=== PATIENT | male | born 1950 | race Caucasian/White ===

== ENCOUNTER 2018-01-01 09:05 | Day surgery (SDC) | payer MEDICARE, SELFPAY ==
[2017-12-23 13:29] VITALS: BMI 25.2
[2018-01-01] VITALS (7 sets, daily range): BP systolic 148–177; BP diastolic 89–110; PULSE 76–97; RESP 11–19; TEMP 36.3–37; O2SAT 96–100; BMI 25.2
--- NOTE | 2018-01-01 | PATH_ITS ---
[facility] Accession Number: [id number] . 01 Material submitted: . PART A: POSTERIOR MIDLINE HEMORRHOID PART B: RIGHT POSTERIOR LATERAL HEMORRHOID . 02 Diagnosis: A. Posterior Midline Hemorrhoid, Biopsy: Hemorrhoidal anorectal tissue. No evidence of neoplasia. . B. Right Posterior Lateral Hemorrhoid, Biopsy: Squamous mucosa with abundant small congestive capillaries consistent with hemorrhoidal tissue. No evidence of neoplasm. MRV/01/05/2018 . 02 Electronically signed: . Richa Briones MD, Pathologist NPI- [id number] . 01 Gross description: . (A) Received in formalin, labeled posterior midline hemorrhoid, is a piece of lui-purple bulging skin (2.5 x 1.6 x 0.5 cm). The resection margin is inked black. Phd Intern serial sections submitted in cassette A1. (B) Received in formalin, labeled right posterior lateral, is a piece of lui-mckay rubbery skin (1.4 x 0.6 x 0.3 cm). The resection margin is inked black. Serially sectioned and entirely submitted in cassette B1. ([id number]) /MRV . 02 Pathologist provided ICD-10: K64.9 . 02 CPT . 135668, [id number] Performed at: 01 [facility] [address], [place], [place] [id number] MD Bienvenido English MD Phone: [phone] Performed at: 02 [facility] [address] [place], [place] [id number] MD Reginald Hodges MD Phone: [phone]
--- NOTE | 2018-01-01 07:58 | PM.PREOP ---
Pre-operative Note Interval Note Pre-op Check: Yes History & Physical Reviewed by Physician and Yes Exam Performed Changes: No
--- NOTE | 2018-01-01 07:59 | PM.PREOP ---
Pre-operative Note Interval Note Changes: Yes H&P completed within 30 days and has changed as indicated here:: has severe anxiety
--- NOTE | 2018-01-01 10:39 | PM.PREOP ---
Pre-operative Note Interval Note Pre-op Check: Yes History & Physical Reviewed by Physician and Yes Exam Performed Changes: No
--- NOTE | 2018-01-01 11:44 | SUR.OPER ---
Supine on padded OR bed, head on pillow, arms secured on padded arm boards at <90 degrees abduction, legs uncrossed, safety belt at thigh, tape over blanket over lower legs.
--- NOTE | 2018-01-01 11:44 | SUR.OPER ---
Lithotomy on padded OR bed, head on pillow, arms secured on padded arm boards at <90 degrees abduction. Legs secured in padded yellow fins stirrups.
[2018-01-01] MEDS: LIDOCAINE 5% OINT 35 GM 1 APPLIC TOP (11:52)
[2018-01-01] MEDS: CEFAZOLIN 2 GM/100 ML FROZ.PIGGY IV (12:06)
[2018-01-01] MEDS: LACTATED RINGERS 1,000 ML 42 ML IV (12:07)
[2018-01-01] MEDS: BUPIVACAINE 0.5% (PF) VIAL 30 ML INJ (13:30)
--- NOTE | 2018-01-01 13:39 | PM.OP.1 ---
Operative Date/Time/Diagnoses Date of procedure: 01/01/18 Time of procedure: 13:39 Pre-op diagnosis: Internal and external hemorrhoids with symptoms. Bilateral recurrent inguinal hernias. Post-op diagnosis: same (Both hernias were recurrent indirect hernias) Procedure & Clinicians Procedure: Bilateral inguinal hernia repairs with plug and patch technique. Three column hemorrhoidectomy. Same procedure as scheduled: Yes Indications: Symptomatic hemorrhoids and hernias. Patient insisted that the operations be done all at 1 visit. Surgeon: Mark Rosen Click Yes if Unassisted: Yes Anesthesia Type: General Operative Notes Findings: Very large posterior midline hemorrhoidal column. Two other smaller columns removed. 1 of these was right posterior lateral and 1 left lateral. Both hernias have recurrence adjacent to implanted mesh. Closure Type: primary Specimen(s): other (Hemorrhoidal colon sent) Implants & Drains: None Estimated Blood Loss (mL): 175 Blood products transfused: none Procedure in detail: The patient was placed in lithotomy and prepped draped the usual fashion. Digital exam revealed a very lax sphincter tone. Circumferential evaluation with a bivalve anoscope revealed a very large anterior column. Other columns were smaller. A suture was placed at the head of the very large posterior column and incision made in the anoderm. The hemorrhoidal column was carefully dissected off the underlying sphincter and muscle wall. I excised the hemorrhoid column and the defect created was closed with a running locking 2 0 chromic suture. The head of the column was oversewn again due to some bleeding in the area. This brought it under control. Digital exam revealed no narrowing of the colonic lumen. I turned my attention to the right posterior lateral hemorrhoid. This was much smaller. It was excised and the defect closed with a running 2 0 chromic. An additional column in the left posterior lateral was oversewn with a 2 0 chromic. Additionally in the posterior right lateral wall there was a continuation of this very large posterior midline hemorrhoidal column. I excised a portion of it and over sewed it. Hemostasis was achieved and Gel-Foam with lidocaine was inserted into the anal verge. The drapes were taken down the patient was taken out lithotomy. He was re-prepped and draped for bilateral inguinal hernia repairs. Beginning on the right side local anesthetic was infiltrated around his prior scar. An incision was made through the old scar and carried down to the level of the external oblique. The external oblique was clearly scarred in but I was able to identify the cord structures in with them from surrounding structures. I opened the cord proximally and there was a rather large lipoma of the cord coming through what appeared to be adjacent to a piece of mesh. I opened the floor dissected the fat off of it and of the underside and reduced it. I then placed a large plug in the defect and tacked it into place with interrupted Ethibond sutures. I closed the floor over it and then placed a patch across the floor. The patch was tacked at the pubic tubercle posterior lamella the anterior rectus sheath the ileo inguinal ligament and the external oblique. The subcu was closed with interrupted 3 0 Vicryl in 2 layers and the skin was closed a running 4 Vicryl subcuticular stitch and Steri-Strips. Attention was turned to the opposite side where a mirror operation was performed. In this case there appeared to be a defect not only adjacent to the external ring which had been recreated with mesh but also a small defect medial not far from the pubic tubercle. This was at the edge of a piece of mesh. A small plug was placed in the defect adjacent to the cord structures at the external ring and this was tacked into place with interrupted 0 Tycron sutures. Patch was then placed across the floor and tacked with interrupted and figure of 8 0 Tycron sutures. Closure was the same as the opposite side. Local anesthetic was infiltrated and Mastisol and Steri-Strips applied. Dressings were applied. Patient patient was taken recovery room good condition. Complications: none Condition: stable Disposition: PACU Plan for aftercare: Follow-up in the office
--- NOTE | 2018-01-01 14:03 | SUR.PHASEI ---
Dr. Alvarez aware pt's bp elevated, diastolic around 106, BP similar to admit, ok for pt to d/c per .
--- NOTE | 2018-01-01 16:25 | SUR.PHASEII ---
Pt forgetful, instructions repeated. Friend, Bhaskar, present. Pt to bathroom, reported he was able to void.
== END 2018-01-01 14:30 | disposition home or self-care (01) ==
PROVIDERS: PCP Family Medicine; Visit Provider Specialist
PROC: (CPT 49520; principal; 2018-01-01 10:45)
PROC: (CPT 49520; 2018-01-01 10:45)
DX: K40.21 Bilateral inguinal hernia, without obstruction or gangrene, recurrent (principal); K64.4 Residual hemorrhoidal skin tags; K64.8 Other hemorrhoids; F17.210 Nicotine dependence, cigarettes, uncomplicated
CPT/HCPCS: 49520; 46260; 88304; C1781; J0690; J1100; J1885; J2405; J2704; J3010

== ENCOUNTER → 2020-09-05 11:41 | Outpatient (CLI) | payer MEDICARE, SELFPAY ==
[2020-09-05 19:25] LABS: Add Manual Diff / Slide Review NO; Basophils Absolute Auto 0 /uL (0-100); Basophils Percent Auto 0.5 % (0-2); Eosinophils Absolute Auto 100 /uL (0-450); Eosinophils Percent Auto 0.8 % (2-4); Hematocrit 43.9 % (41-53); Hemoglobin 14.4 g/dL (13.5-17.5); Lymphocytes Absolute Auto 2800 /uL (1100-4500); Lymphocytes Percent Auto 30.6 % (25-40); Mean Corpuscular HGB Conc 32.9 % (30-36); Mean Corpuscular Volume 94.2 fL (80-100); Monocytes Absolute Auto 500 /uL (0-900); Monocytes Percent Auto 5.4 % (3-14); Neutrophils Absolute Auto 5700 /uL (1500-7000); Neutrophils Percent Auto 62.7 % (50-75); Platelet Count 249 X10^3/uL (150-400); Red Blood Cell Count 4.66 X10^6/uL (4.5-5.9); Red Cell Distribution Width 13.2 % (11.6-14.8); White Blood Cell Count 9.1 X10^3/uL (4.5-11.0)
[2020-09-05 19:28] LABS: Alanine Aminotransferase 28 IU/L (<50); Albumin 4.7 g/dL (3.5-5.0); Albumin Globulin Ratio 1.4 (1.0-2.8); Alkaline Phosphatase 69 U/L (38-126); Aspartate Aminotransferase 37 IU/L (17-59); BUN Creatinine Ratio 25.2 (6-22); Bilirubin Total 0.6 mg/dL (0.2-1.3); Blood Urea Nitrogen 31 mg/dL (9-20); Calcium 10.3 mg/dL (8.4-10.2); Carbon Dioxide 27 mmol/L (22-32); Chloride 103 mmol/L (98-107); Cholesterol 218 mg/dL (140-199); Estimated Glomerular Filt Rate 58.3 mL/min (>60); Globulin 3.3 g/dL (1.7-4.1); Glucose 105 mg/dL (80-110); HDL Cholesterol 36 mg/dL (40-60); HEMOLYSIS < 15 (0-50); LDL Cholesterol Calculated 159 mg/dL (<100); Sodium 140 mmol/L (137-145); Triglycerides 116 mg/dL (35-150)
[2020-09-05 19:34] LABS: Potassium 5.4 mmol/L (3.4-5.1)
[2020-09-05 19:48] LABS: Hemoglobin A1C% w Est Avg Glu 5.9 % (4.0-6.0)
== END ==
PROVIDERS: PCP Family Medicine; Visit Provider Physician Assistant
DX: R73.9 Hyperglycemia, unspecified (principal); K92.1 Melena; E78.5 Hyperlipidemia, unspecified
CPT/HCPCS: 80053; 80061; 83036; 85025

== ENCOUNTER → 2020-12-13 11:12 | Outpatient (CLI) | payer MEDICARE, SELFPAY ==
[2020-12-13 20:42] LABS: COVID19 - ORCAS (NP or Nasal) Negative (Negative)
== END ==
PROVIDERS: PCP Physician Assistant; Referring Provider Physician Assistant; Visit Provider Physician Assistant
DX: Z01.812 Encounter for preprocedural laboratory examination (principal)
CPT/HCPCS: U0003

== ENCOUNTER 2020-12-14 10:54 | Day surgery (SDC) | payer MEDICARE, SELFPAY ==
[2020-12-08 12:06] VITALS: BMI 25.2
[2020-12-14] VITALS (10 sets, daily range): BP systolic 107–139; BP diastolic 70–90; PULSE 7–82; RESP 11–16; TEMP 36.5–36.8; O2SAT 98–100; BMI 25.2
--- NOTE | 2020-12-14 | PATH_ITS ---
[facility] Accession Number: [id number] . 01 Material submitted: . finger - RIGHT MIDDLE FINGER BONY MASS . 01 Diagnosis: Right Middle Finger, Excision: Benign osteocartilaginous proliferation, consistent with exostosis. . Note: Clinical and radiographic correlation is recommended. [facility] 12/19/2020 1640 Local . 01 Comment: This case has been reviewed by Dr. Vy Young. . 01 Electronically signed: . Frandy Sosa MD, Dermatopathologist NPI- [id number] . 01 Gross description: . The specimen is received in formalin, labeled right middle finger bony mass and consists of a 0.6 x 0.4 x 0.2 cm mckay-white fragment of bone which is entirely submitted following decalcification in cassette A1. ([id number]) /MRV 12/15/2020 1047 Local . 01 Pathologist provided ICD-10: M89.8X4 . 01 CPT . 206288, 817431 Performed at: 01 [facility] [address] [place] [address], [place], [place] [id number] MD Bienvenido English MD Phone: [phone]
[2020-12-14] MEDS: LACTATED RINGERS 1,000 ML 100 ML IV (11:46)
--- NOTE | 2020-12-14 13:25 | PM.PREOP ---
Pre-operative Note Interval Note History & Physical reviewed/Exam performed by Physician: Yes Changes to H&P: No
--- NOTE | 2020-12-14 13:26 | PM.HP.1 ---
History of Present Illness History of Present Illness Date Patient Seen: 12/14/20 Time Patient Seen: 13:20 Chief complaint: SDC *$350 copay* Narrative: 70-year-old gentleman with a right middle finger bony mass causing him pain and limiting his range of motion. Patient History Medical History Bilateral inguinal hernia, without obstruction or gangrene, recurrent Current use of anticoagulant therapy Hemorrhoids with complication History of intestinal obstruction History of left heart catheterization (10/24/20) Hypertension Impaired vision Myocardial infarction (10/24/20) Surgical History Anesthesia History of bilateral inguinal hernia repair (~12/31/17) History of hemorrhoidectomy (~12/31/17) Hx of heart artery stent (~10/2020) Family & Social History Social History: household members none Tobacco & Substance use: Tobacco type cigarettes Smoking Status Former smoker alcohol intake never Substance Use Type marijuana Meds Home Medications and Allergies Home Medications Medication Instructions Recorded Confirmed Type PSYLLIUM HUSK (WITH SUGAR) 368 gm PO DAILY #0 03/05/16 12/08/20 History (METAMUCIL POWDER) lisinopril 40 mg tablet 20 mg PO DAILY 09/05/20 12/14/20 History aspirin 81 mg tablet,delayed 81 mg PO DAILY 11/06/20 12/14/20 History release (Adult Aspirin Regimen) metoprolol tartrate 25 mg tablet 12.5 mg PO BID 11/06/20 12/14/20 History ticagrelor 90 mg tablet 90 mg PO BID 11/06/20 12/08/20 History atorvastatin 10 mg tablet 40 mg PO BEDTIME 12/08/20 12/14/20 History ticagrelor 90 mg tablet (Brilinta) 90 mg BID 12/14/20 12/14/20 History Allergies Allergy/AdvReac Type Severity Reaction Status Date / Time No Known Drug Allergies Allergy Verified 12/14/20 11:42 Exam Vital Signs (past 8 hours): - 12/14/20 11:53 Temperature 97.7 F Pulse Rate 65 Respiratory Rate 14 Blood Pressure 139/90 Pulse Oximetry 100 Oxygen Delivery Method Room Air Narrative Exam Narrative: Bony mass over the distal aspect of the proximal phalanx just distal to the PIP joint. Patient can fully extend the finger but has difficulty with full flexion. Assessment & Plan Assessment & Plan narrative: Gentleman with a bony mass involving the right middle finger causing him pain and discomfort. Patient is interested in having the mass removed. Time Spent With Patient Time with patient: less than 15 minutes
[2020-12-14] MEDS: CEFAZOLIN 1 GM VIAL 2 GM IV (14:02)
--- NOTE | 2020-12-14 14:05 | SUR.OPER ---
Supine on padded OR bed, head on pillow, left arm is secured on padded arm boards at <90 degrees abduction, right arm draped free on padded black armtable, legs uncrossed, safety belt at thigh, tape over blanket over lower legs.
[2020-12-14] MEDS: BUPIVACAINE 0.5% (PF) VIAL 30 ML INJ (14:12)
[2020-12-14] MEDS: LIDOCAINE 1% W/EPI 20 ML INJ (14:13)
--- NOTE | 2020-12-14 14:33 | PM.OP.1 ---
Operative Date/Time/Diagnoses Date of procedure: 12/14/20 Time of procedure: 14:00 Pre-op diagnosis: Right middle finger bony mass Post-op diagnosis: same Procedure & Clinicians Procedure: Right middle finger bony mass excision Same procedure as scheduled: Yes Indications: Right middle finger bony mass Surgeon: Maximiliano Draper Click Yes if Unassisted: Yes Anesthesia Type: General Operative Notes Findings: Bony mass coming off the lateral border of the proximal phalanx. Not involving the joint space. Closure Type: primary Specimen(s): other (Bony mass sent to pathology) Estimated Blood Loss (mL): 0 Blood products transfused: none Tourniquet time (min): 22 Procedure in detail: On date of service, patient was met in the holding area and his operative site was signed and witnessed by the OR staff. The surgery was once again discussed with the patient in any remaining questions or concerns he had were answered fully. Patient was taken back to the operating theater and placed on the operating table in a supine position. Great care was taken to ensure that all bony prominences were appropriately padded. Well-padded tourniquet was placed up along the upper extremity. Time-out was performed verifying patient's name procedure, and operative site. Right arm was prepped and prepped in the normal sterile fashion. The arm was in seeing 1 aided in the tourniquet was turned up to 250 mmHg. A Itzel type incision was made centered over the PIP joint of the right middle finger. Fifteen blade was used to incise through skin and fascial tissue. Blunt dissection was continued identifying the neurovascular bundles to the middle finger. Once both bundles were identified and retracted continue dissection was performed until we were able to visualize the ulnar border of the proximal phalanx. The A3 bhupinder was just partially released on that ulnar aspect the venous ability to retract the flexor tendons given his good visualization of the bony mass. Osteotome was used to remove the bony mass. This was then sent to pathology. The rest of the proximal phalanx and surrounding structures were visualized. No sign of any other masses. The wound was copiously irrigated. Small opening made into the A3 bhupinder was closed using 3-0 Vicryl. The skin was closed with nylon. The hand was cleaned, dried, and dressed and patient was taken to the PACU in stable condition. Complications: none Post-operative Condition: stable Disposition: PACU Plan for aftercare: Patient can be discharged home today. No restrictions of range of motion. No lifting more than 2-3 lb for 2 weeks.
--- NOTE | 2020-12-14 15:00 | SUR.PHASEI ---
3056 Dr Covarrubias here to see patient and update patient regarding surgery.
--- NOTE | 2020-12-14 15:29 | SUR.PHASEII ---
Pt in OPD, drinking coffee and taking crackers and cheese. Alert, oriented, denies pain. Prescription taken to [facility] by this RN. Pt to be home after pharmacy closes on [address] this evening. Call light in reach. Bed in low position.
--- NOTE | 2020-12-14 16:22 | SUR.PHASEII ---
Meds from Pharmacy picked up and given to pt, pt dressed and waited for taxi.
--- NOTE | 2020-12-14 16:23 | SUR.PHASEII ---
R hand has been elevated and ice to site. Dressing remained c/d/i.
--- NOTE | 2020-12-14 16:42 | SUR.PHASEII ---
F/U appt changed due to pt wanting to stay in [place]. Pt left unit for taxi and left in stable condition.
== END 2020-12-14 16:42 | disposition home or self-care (01) ==
PROVIDERS: PCP Physician Assistant; Referring Provider Orthopaedic Surgery; Visit Provider Orthopaedic Surgery
PROC: (CPT 26160; principal; 2020-12-14 13:15)
DX: M89.8X4 Other specified disorders of bone, hand (principal); I10 Essential (primary) hypertension; I25.10 Atherosclerotic heart disease of native coronary artery without angina pectoris
CPT/HCPCS: 26210; J0690; J1100; J2250; J2405; J2704; J3010

== ENCOUNTER → 2021-07-02 13:57 | Outpatient (CLI) | payer MEDICARE, SELFPAY ==
[2021-07-02 19:26] LABS: Alanine Aminotransferase 29 IU/L (<50); Albumin 4.8 g/dL (3.5-5.0); Albumin Globulin Ratio 1.4 (1.0-2.8); Alkaline Phosphatase 71 U/L (38-126); Aspartate Aminotransferase 31 IU/L (17-59); BUN Creatinine Ratio 22.3 (6-22); Bilirubin Total 0.6 mg/dL (0.2-1.3); Blood Urea Nitrogen 27 mg/dL (9-20); Calcium 10.1 mg/dL (8.4-10.2); Carbon Dioxide 30 mmol/L (22-32); Chloride 103 mmol/L (98-107); Cholesterol 144 mg/dL (140-199); Estimated Glomerular Filt Rate 59.3 mL/min (>60); Globulin 3.4 g/dL (1.7-4.1); Glucose 109 mg/dL (80-110); HDL Cholesterol 28 mg/dL (40-60); HEMOLYSIS < 15 (0-50); LDL Cholesterol Calculated 89 mg/dL (<100); Sodium 141 mmol/L (137-145); Total Protein 8.2 g/dL (6.3-8.2); Triglycerides 137 mg/dL (35-150)
[2021-07-02 19:30] LABS: Add Manual Diff / Slide Review NO; Basophils Absolute Auto 0 /uL (0-100); Basophils Percent Auto 0.2 % (0-2); Eosinophils Absolute Auto 100 /uL (0-450); Eosinophils Percent Auto 1.2 % (2-4); Hemoglobin 13.7 g/dL (13.5-17.5); Lymphocytes Absolute Auto 2100 /uL (1100-4500); Lymphocytes Percent Auto 32.5 % (25-40); Mean Corpuscular HGB Conc 33.4 % (30-36); Mean Corpuscular Hemoglobin 30.1 PG (26-34); Monocytes Absolute Auto 500 /uL (0-900); Monocytes Percent Auto 7.7 % (3-14); Neutrophils Absolute Auto 3700 /uL (1500-7000); Neutrophils Percent Auto 58.4 % (50-75); Platelet Count 263 X10^3/uL (150-400); Red Blood Cell Count 4.56 X10^6/uL (4.5-5.9); Red Cell Distribution Width 13.3 % (11.6-14.8); White Blood Cell Count 6.4 X10^3/uL (4.5-11.0)
[2021-07-02 19:57] LABS: Prostate Specific Antigen 3.58 ng/mL (0.10-4.00)
== END ==
PROVIDERS: PCP Physician Assistant; Visit Provider Family Medicine
DX: R35.1 Nocturia (principal); Z12.5 Encounter for screening for malignant neoplasm of prostate; E78.5 Hyperlipidemia, unspecified; I10 Essential (primary) hypertension; R73.9 Hyperglycemia, unspecified
CPT/HCPCS: 80053; 80061; 84153; 85025

== ENCOUNTER → 2021-07-17 08:52 | Outpatient (CLI) | payer MEDICARE, SELFPAY ==
[2021-07-17 19:07] LABS: Add Manual Diff / Slide Review NO; Basophils Absolute Auto 100 /uL (0-100); Basophils Percent Auto 0.7 % (0-2); Eosinophils Absolute Auto 100 /uL (0-450); Eosinophils Percent Auto 1.5 % (2-4); Hematocrit 40.1 % (41-53); Hemoglobin 13.2 g/dL (13.5-17.5); Lymphocytes Absolute Auto 2900 /uL (1100-4500); Lymphocytes Percent Auto 33.6 % (25-40); Mean Corpuscular HGB Conc 32.9 % (30-36); Mean Corpuscular Hemoglobin 29.7 PG (26-34); Mean Corpuscular Volume 90.3 fL (80-100); Monocytes Absolute Auto 600 /uL (0-900); Monocytes Percent Auto 6.7 % (3-14); Neutrophils Absolute Auto 4900 /uL (1500-7000); Neutrophils Percent Auto 57.5 % (50-75); Platelet Count 266 X10^3/uL (150-400); Red Blood Cell Count 4.44 X10^6/uL (4.5-5.9); Red Cell Distribution Width 13.8 % (11.6-14.8); White Blood Cell Count 8.5 X10^3/uL (4.5-11.0)
[2021-07-17 19:15] LABS: Alanine Aminotransferase 31 IU/L (<50); Albumin 4.6 g/dL (3.5-5.0); Albumin Globulin Ratio 1.5 (1.0-2.8); Alkaline Phosphatase 67 U/L (38-126); Aspartate Aminotransferase 32 IU/L (17-59); BUN Creatinine Ratio 19.1 (6-22); Bilirubin Total 0.6 mg/dL (0.2-1.3); Blood Urea Nitrogen 22 mg/dL (9-20); Calcium 9.7 mg/dL (8.4-10.2); Carbon Dioxide 29 mmol/L (22-32); Chloride 104 mmol/L (98-107); Cholesterol 146 mg/dL (140-199); Estimated Glomerular Filt Rate > 60.0 mL/min (>60); Globulin 3.1 g/dL (1.7-4.1); Glucose 124 mg/dL (80-110); HDL Cholesterol 27 mg/dL (40-60); HEMOLYSIS 17 (0-50); LDL Cholesterol Calculated 89 mg/dL (<100); Potassium 4.6 mmol/L (3.4-5.1); Sodium 140 mmol/L (137-145); Total Protein 7.7 g/dL (6.3-8.2); Triglycerides 151 mg/dL (35-150)
[2021-07-17 19:20] LABS: Hemoglobin A1C% w Est Avg Glu 6.3 % (4.0-6.0)
[2021-07-17 19:46] LABS: Prostate Specific Antigen 2.59 ng/mL (0.10-4.00)
== END ==
PROVIDERS: PCP Physician Assistant; Visit Provider Family Medicine
DX: I10 Essential (primary) hypertension (principal); R73.9 Hyperglycemia, unspecified; E78.5 Hyperlipidemia, unspecified; Z12.5 Encounter for screening for malignant neoplasm of prostate; N40.0 Benign prostatic hyperplasia without lower urinary tract symptoms
CPT/HCPCS: 80053; 80061; 83036; 84153; 85025

== ENCOUNTER → 2021-11-08 10:45 | Outpatient (CLI) | payer MEDICARE, SELFPAY ==
[2021-11-08 18:57] LABS: Cholesterol 133 mg/dL (140-199); Glucose 122 mg/dL (80-110); HDL Cholesterol 27 mg/dL (40-60); LDL Cholesterol Calculated 78 mg/dL (<100); Triglycerides 139 mg/dL (35-150)
[2021-11-08 19:28] LABS: Prostate Specific Antigen Scrn 3.13 ng/mL (0.1-4.0)
[2021-11-08 19:58] LABS: Hep C Virus Ab w/Reflex Quant NEGATIVE s/c (NEGATIVE)
== END ==
PROVIDERS: PCP Physician Assistant; Visit Provider Family Medicine
DX: Z00.00 Encounter for general adult medical examination without abnormal findings (principal); Z11.59 Encounter for screening for other viral diseases; Z12.11 Encounter for screening for malignant neoplasm of colon; Z12.5 Encounter for screening for malignant neoplasm of prostate; Z13.1 Encounter for screening for diabetes mellitus; Z13.220 Encounter for screening for lipoid disorders; Z71.85 Encounter for immunization safety counseling
CPT/HCPCS: 80061; 82947; 86803; G0103

== ENCOUNTER → 2022-02-11 09:19 | Outpatient (CLI) | payer MEDICARE, SELFPAY ==
[2022-02-13 13:56] LABS: Fecal Immunochemical Test Negative (Negative)
== END ==
PROVIDERS: PCP Family Medicine; Visit Provider Family Medicine
DX: Z12.11 Encounter for screening for malignant neoplasm of colon (principal); Z13.9 Encounter for screening, unspecified
CPT/HCPCS: 82274

== ENCOUNTER → 2022-03-13 11:00 | Outpatient (CLI) | payer MEDICARE, SELFPAY ==
[2022-03-13 19:51] LABS: HEMOLYSIS < 15 (0-50); Iron 105 ug/dL (49-181)
[2022-03-13 20:02] LABS: BUN Creatinine Ratio 20.5 (6-22); Blood Urea Nitrogen 23 mg/dL (9-20); Calcium 9.1 mg/dL (8.4-10.2); Carbon Dioxide 28 mmol/L (22-32); Chloride 102 mmol/L (98-107); Estimated Glomerular Filt Rate > 60 mL/min (>60); Glucose 113 mg/dL (80-110); HEMOLYSIS < 15 (0-50); Percent Iron Saturation 26 % (20-50); Potassium 4.9 mmol/L (3.4-5.1); Sodium 140 mmol/L (137-145); Total Iron Binding Capacity 410 ug/dL (261-462); Transferrin 304 mg/dL (206-381)
[2022-03-13 20:03] LABS: Hemoglobin A1C% w Est Avg Glu 6.1 % (4.0-6.0)
[2022-03-13 20:16] LABS: Creatinine Urine Random 50.3 mg/dL
[2022-03-13 20:33] LABS: Microalbumin Urine Random < 0.6 mg/dL (0-1.6)
== END ==
PROVIDERS: PCP Family Medicine; Visit Provider Family Medicine
DX: E11.9 Type 2 diabetes mellitus without complications (principal); E78.5 Hyperlipidemia, unspecified; I10 Essential (primary) hypertension; I25.10 Atherosclerotic heart disease of native coronary artery without angina pectoris
CPT/HCPCS: 80048; 82043; 82570; 83036; 83540; 83550

== ENCOUNTER 2022-04-24 13:55 | Emergency (ER) | payer MEDICARE, SELFPAY ==
[2022-04-24 14:16] VITALS: BP 130/81; PULSE 91; RESP 18; TEMP 36.7; O2SAT 99; BMI 28.2
[2022-04-24 16:26] LABS: Add Manual Diff / Slide Review NO; Basophils Absolute Auto 0 /uL (0-100); Basophils Percent Auto 0.4 % (0-2); Eosinophils Absolute Auto 100 /uL (0-450); Hematocrit 43.4 % (41-53); Lymphocytes Absolute Auto 2500 /uL (1100-4500); Lymphocytes Percent Auto 33.5 % (25-40); Mean Corpuscular HGB Conc 32.3 % (30-36); Mean Corpuscular Hemoglobin 28.7 PG (26-34); Monocytes Absolute Auto 700 /uL (0-900); Neutrophils Absolute Auto 4100 /uL (1500-7000); Neutrophils Percent Auto 56.1 % (50-75); Platelet Count 240 X10^3/uL (150-400); Red Blood Cell Count 4.88 X10^6/uL (4.5-5.9); White Blood Cell Count 7.3 X10^3/uL (4.5-11.0)
[2022-04-24 16:29] LABS: Alanine Aminotransferase 45 IU/L (<50); Albumin 4.4 g/dL (3.5-5.0); Albumin Globulin Ratio 1.3 (1.0-2.8); Alkaline Phosphatase 60 U/L (38-126); Aspartate Aminotransferase 41 IU/L (17-59); BUN Creatinine Ratio 18.5 (6-22); Bilirubin Total 0.5 mg/dL (0.2-1.3); Blood Urea Nitrogen 22 mg/dL (9-20); Calcium 9.3 mg/dL (8.4-10.2); Carbon Dioxide 28 mmol/L (22-32); Chloride 103 mmol/L (98-107); Estimated Glomerular Filt Rate > 60 mL/min (>60); Globulin 3.3 g/dL (1.7-4.1); Glucose 105 mg/dL (80-110); HEMOLYSIS < 15 (0-50); Lipase 160 U/L (23-300); Potassium 4.6 mmol/L (3.4-5.1); Sodium 142 mmol/L (137-145); Total Protein 7.7 g/dL (6.3-8.2)
[2022-04-24 17:39] VITALS: BP 116/76; PULSE 89; RESP 19; O2SAT 96
[2022-04-24 17:53] LABS: Bacteria Urine None Seen; Culture Indicated Urine Cult Not Indicated; RBC Urine 1-5/HPF (0-5/HPF); Squamous Epithelial Cell Urine 0-1 /HPF (0-5/HPF); WBC Urine 0-1/HPF (0-5/HPF)
--- NOTE | 2022-04-24 17:54 | ED.GENADULT ---
HPI - General Adult General Chief complaint: Abdominal Pain Stated complaint: Sent from [facility] [place] for hernia Time Seen by Provider: 04/24/22 16:15 Source: patient Mode of arrival: Ambulatory Related Data Home Medications Medication Instructions Recorded Confirmed PSYLLIUM HUSK (WITH SUGAR) 368 gm PO DAILY ##0 03/05/16 04/24/22 (METAMUCIL POWDER) aspirin 81 mg tablet,delayed 81 mg PO DAILY 11/06/20 04/24/22 release (Adult Aspirin Regimen) Previous Rx's Medication Instructions Recorded atorvastatin 40 mg tablet 40 mg PO BEDTIME elevated lipids 07/02/21 #90 tabs lisinopril 20 mg tablet 20 mg PO DAILY #90 tabs 07/02/21 diphenhydramine HCl 25 mg capsule See Rx Instructions PO Q4-6H PRN 08/14/21 itching #30 caps ezetimibe 10 mg tablet (Zetia) 10 mg PO DAILY #90 tabs 12/03/21 metformin 500 mg tablet,extended 500 mg PO DAILY #90 tabs 12/03/21 release 24 hr metoprolol tartrate 25 mg tablet 25 mg PO BID #180 tabs 03/18/22 tamsulosin 0.4 mg capsule (Flomax) 0.4 mg PO DAILY #90 caps 03/18/22 Allergies Allergy/AdvReac Type Severity Reaction Status Date / Time No Known Drug Allergies Allergy Verified 04/24/22 09:39 Review of Systems Constitutional Constitutional: Reports system reviewed and no additional complaints, except as documented Gastrointestinal Gastrointestinal: Reports system reviewed and no additional complaints, except as documented Genitourinary Genitourinary: Reports system reviewed and no additional complaints, except as documented Integumentary/Breasts Skin/Breast: Reports system reviewed and no additional complaints, except as documented Neurologic Neurologic: Reports system reviewed and no additional complaints, except as documented Hematologic/Lymphatic On Anticoagulants: No Patient History Medical History Bilateral inguinal hernia, without obstruction or gangrene, recurrent Current use of anticoagulant therapy Hemorrhoids with complication History of intestinal obstruction Hypertension Impaired vision Myocardial infarction (10/24/20) Surgical History Anesthesia History of bilateral inguinal hernia repair (~12/31/17) History of hemorrhoidectomy (~12/31/17) Hx of heart artery stent (~10/2020) Social History household members: none Smoking Status: Former smoker alcohol intake: never substance use type: marijuana Smoking Status: Former smoker Substance Use Type: marijuana Exam Initial Vital Signs Initial Vital Signs: Vital Signs Temperature 98.1 F 04/24/22 14:16 Pulse Rate 91 H 04/24/22 14:16 Respiratory Rate 18 04/24/22 14:16 Blood Pressure 130/81 04/24/22 14:16 Pulse Oximetry 99 04/24/22 14:16 Oxygen Delivery Method 04/24/22 14:16 HENMT Head: normal to inspection and normocephalic Resp Effort & Inspection: normal respiratory effort Auscultation: clear to auscultation bilaterally Cardio Rate: regular rate GI Inspection: normal to inspection and non-distended Other: Bilateral inguinal hernias that are not reducible. Tender to palpation. Penis: normal penis Testes: normal and testicular lie normal Skin General: no rashes or lesions noted Neuro General: patient alert, patient awake and moves all extremities Extrem General: normal to inspection and capillary refill normal Course Orders Ordered: ED Orders 04/24/22 15:41 EKG-12 Lead Stat 04/24/22 16:03 Complete Blood Count AUTO DIFF Stat Comprehensive Metabolic Panel Stat Lipase Stat 04/24/22 17:33 Urine Microscopic Stat 04/24/22 18:14 Consult to General Surgery Stat Ondansetron HCl (Ondansetron 4 Mg Odt) 4 mg PO NOW PRN PRN Reason: Nausea And Vomiting Ondansetron HCl (Ondansetron 4 Mg/2 Ml Inj) 4 mg IV NOW PRN PRN Reason: Nausea And Vomiting Last Admin: 04/24/22 18:53 Dose: 4 mg Documented By: LIZETH Discontinued Medications Diazepam (Diazepam 10 Mg/2 Ml Syringe) 2 mg IV NOW ONE Stop: 04/24/22 18:16 Last Admin: 04/24/22 18:53 Dose: 2 mg Documented By: LIZETH Hydromorphone HCl (Hydromorphone 1 Mg Inj) 1 mg IV NOW ONE Stop: 04/24/22 19:20 Vital Signs Vital signs: Vital Signs - 8 hr 04/24/22 14:16 04/24/22 17:39 04/24/22 18:56 Temperature 98.1 F Pulse Rate 91 H 89 88 Respiratory Rate 18 19 18 Blood Pressure 130/81 116/76 121/69 Pulse Oximetry 99 96 97 Oxygen Delivery Method Room Air Room Air Room Air Medical Decision Making Lab Data Lab results reviewed: Yes I reviewed the patient's lab results. Result diagrams: 04/24/22 16:03 04/24/22 16:03 Labs: Lab Results 04/24/22 04/24/22 04/24/22 Range/Units 16:03 16:03 17:33 WBC 7.3 (4.5-11.0) X10^3/uL RBC 4.88 (4.5-5.9) X10^6/uL Hgb 14.0 (13.5-17.5) g/dL Hct 43.4 (41-53) % MCV 89.0 (80-100) fL MCH 28.7 (26-34) PG MCHC 32.3 (30-36) % RDW 14.0 (11.6-14.8) % Plt Count 240 (150-400) X10^3/uL Neut % (Auto) 56.1 (50-75) % Lymph % (Auto) 33.5 (25-40) % [place] % (Auto) 9.0 (3-14) % Eos % (Auto) 1.0 L (2-4) % Baso % (Auto) 0.4 (0-2) % Neut # (Auto) 4100 (2015-5839) /uL Lymph # (Auto) 2500 (8486-0318) /uL [place] # (Auto) 700 (0-900) /uL Eos # (Auto) 100 (0-450) /uL Baso # (Auto) 0 (0-100) /uL Sodium 142 (137-145) mmol/L Potassium 4.6 (3.4-5.1) mmol/L Chloride 103 (98-107) mmol/L Carbon Dioxide 28 (22-32) mmol/L BUN 22 H (9-20) mg/dL Creatinine 1.19 (0.66-1.25) mg/dL Estimated GFR > 60 (>60) mL/min BUN/Creatinine Ratio 18.5 (6-22) Glucose 105 (80-110) mg/dL Calcium 9.3 (8.4-10.2) mg/dL Total Bilirubin 0.5 (0.2-1.3) mg/dL AST 41 (17-59) IU/L ALT 45 (<50) IU/L Alkaline Phosphatase 60 (38-126) U/L Total Protein 7.7 (6.3-8.2) g/dL Albumin 4.4 (3.5-5.0) g/dL Globulin 3.3 (1.7-4.1) g/dL Albumin/Globulin Ratio 1.3 (1.0-2.8) Lipase 160 (23-300) U/L Urine RBC 1-5/hpf (0-5/HPF) Urine WBC 0-1/hpf (0-5/HPF) Ur Squamous Epith Cells 0-1 /hpf (0-5/HPF) Urine Bacteria None seen (None) Ur Culture Indicated? Cult not indicated Urine Dip Bedside Urine Glucose Negative Bedside Urine Bilirubin - Negative Bedside Urine Ketone - Negative Urine Specific [place] 1.025 Bedside Urine Occult Blood + Bedside Urine pH 6.0 Bedside Urine Protein - Negative Bedside Urine Urobilinogen - Negative Bedside Urine Nitrite - Negative Bedside Urine Leukocytes - Negative Esterase Point of care testing: Urine Dip Bedside Urine Glucose Negative Bedside Urine Bilirubin - Negative Bedside Urine Ketone - Negative Urine Specific [place] 1.025 Bedside Urine Occult Blood + Bedside Urine pH 6.0 Bedside Urine Protein - Negative Bedside Urine Urobilinogen - Negative Bedside Urine Nitrite - Negative Bedside Urine Leukocytes - Negative Esterase MDM Narrative Medical decision making narrative: Patient does have what appears to be bilateral strangulated inguinal hernias. Discussed the case with Dr. dinh with general surgery who will come to evaluate the patient in the emergency department. Care turned over to Dr. Chamorro to follow-up and disposition. Discharge Plan Departure Prescriptions: No Action PSYLLIUM HUSK (WITH SUGAR) (METAMUCIL POWDER) 368 gm PO DAILY Qty: 0 aspirin [Adult Aspirin Regimen] 81 mg tablet,delayed release (DR/EC) 81 mg PO DAILY atorvastatin 40 mg tablet 40 mg PO BEDTIME Qty: 90 3RF lisinopril 20 mg tablet 20 mg PO DAILY Qty: 90 3RF diphenhydramine HCl 25 mg capsule See Rx Instructions PO Q4-6H PRN (Reason: itching) Qty: 30 0RF Rx Instructions: Take 1 to 2 caps PO every 4-6 hours PRN; metoprolol tartrate 25 mg tablet 25 mg PO BID Qty: 180 3RF tamsulosin [Flomax] 0.4 mg capsule 0.4 mg PO DAILY Qty: 90 3RF metformin 500 mg tablet extended release 24 hr 500 mg PO DAILY Qty: 90 3RF ezetimibe [Zetia] 10 mg tablet 10 mg PO DAILY Qty: 90 3RF Referrals: Maurizio Yap MD [Primary Care Provider] -
[2022-04-24] MEDS: diazePAM 10 MG/2 ML SYRINGE 2 MG IV (18:53)
[2022-04-24] MEDS: ONDANSETRON 4 MG/2 ML INJ IV (18:53)
[2022-04-24 18:56] VITALS: BP 121/69; PULSE 88; RESP 18; O2SAT 97
[2022-04-24] MEDS: HYDROMORPHONE 1 MG INJ IV (19:29)
--- NOTE | 2022-04-24 19:36 | DI.US.S_ITS ---
PROCEDURE: US SCROTUM INDICATIONS: RIGHT TESTICULAR PAIN TECHNIQUE: Real-time scanning was performed of the scrotum and testicles, with image documentation. Color and pulse Doppler interrogation was performed of both testicles. COMPARISON: None. FINDINGS: Right: Testicle measures 4.5 x 2.3 x 3.0 cm and appears homogenous in echotexture. Epididymis is normal in overall size and morphology. There is a small epididymal head cyst or spermatocele measuring up to 0.3 cm. There is a small right hydrocele. No varicoceles. Overlying scrotal skin is normal in thickness. No definite right inguinal hernia identified. Left: Testicle measures 4.3 x 2.4 x 2.3 cm and appears homogeneous in echotexture. Epididymis is normal in overall size and morphology. There is a small epididymal head cyst or spermatocele measuring up to 0.4 cm. No hydrocele or varicoceles. Overlying scrotal skin is normal in thickness. Doppler: Color and pulse Doppler demonstrate normal and symmetric arterial flow in both testicles. IMPRESSION: 1. Small right hydrocele. 2. Small bilateral epididymal head cysts or spermatoceles. 3. No definite evidence of testicular torsion. Dictated by: Bienvenido Mclain M.D. on 04/24/2022 at 22:38 Approved by: Bienvenido Mclain M.D. on 04/24/2022 at 22:42
--- NOTE | 2022-04-24 19:38 | DI.CT.S_ITS ---
PROCEDURE: CT ABDOMEN PELVIS W CON INDICATIONS: reduced inguinal hernia with continued RLQ pain TECHNIQUE: After the administration of IV contrast, axial sections were acquired from the lung bases to the pubic symphysis. Coronal and sagittal reformats were performed. For radiation dose reduction, the following was used: automated exposure control, adjustment of mA and/or kV according to patient size. COMPARISON: None. FINDINGS: Image quality: Excellent. Lung bases: There are clustered right perihilar ground-glass nodular opacities in the right middle lobe. Dependent atelectasis is demonstrated bilaterally. Heart: Heart is normal in size. A small pericardial effusion is present. There is a small hiatal hernia and mild concentric wall thickening within the visualized distal esophagus. ABDOMEN: Liver: There is an irregular hypoattenuating lesion within the right hepatic lobe measuring up to 2.3 cm on series 2, image 24. Gallbladder: Within normal limits without calcified gallstones. Biliary ducts: No biliary ductal dilatation. Pancreas: Unremarkable. Spleen: Normal in size. There are few small hypoattenuating lesions within the spleen measuring up to 0.7 cm on series 2, image 27. The findings are too small to characterize and are nonspecific. Adrenal Glands: No adrenal nodules. Kidneys and Ureters: There is a hypoattenuating mass within the inferior pole of the right kidney measuring up to 5.3 cm in craniocaudal dimension on series 4, image 40 and 4.8 x 4.4 cm in transverse dimension on series 2, image 47. There is no associated perinephric organ invasion. No evidence of renal vein invasion. Bilateral renal cysts are demonstrated as well as additional small low-density foci which are too small to characterize and likely represent cysts. There is a nonobstructing stone within the left kidney measuring up to 0.3 cm. No hydronephrosis. Stomach and Bowel: Stomach, small bowel loops, and colon are normal in caliber and wall thickness. The appendix is normal in appearance. There is colonic diverticulosis without acute diverticulitis. Peritoneum: No abnormal intraperitoneal fluid. No free air. Ventral Wall: No hernia. Abdominal Nodes: No retroperitoneal or mesenteric adenopathy by size criteria. Vessels: Aorta and inferior vena cava are normal in size. PELVIS: Pelvic Organs: Unremarkable. Bladder: Unremarkable. Pelvic Nodes: No enlarged lymph nodes. Miscellaneous: There are bilateral inguinal hernias including a moderate-sized hernia on the right containing a small amount of fluid and fat stranding. There is mild partial extension of the anteroinferior aspect of the bladder into the hernia. A small hernia on the left also demonstrates mild fat stranding. No herniated bowel loops. Bones: Visualized osseous structures demonstrate no suspicious focal lesions. IMPRESSION: 1. Bilateral inguinal hernias including a moderate-sized hernia on the right containing a small amount of fluid and fat stranding. Partial extension of the anterior inferior aspect of the bladder into the hernia is demonstrated without associated bladder wall thickening. No bowel herniation. 2. Solid mass demonstrated within the right kidney is nonspecific but likely represents a renal cell carcinoma. No evidence of perinephric solid organ invasion or renal vein invasion. No lymphadenopathy in the abdomen or pelvis by size criteria. 3. Irregular hypoattenuating lesion within the right hepatic lobe is nonspecific but metastatic disease cannot be excluded. Further evaluation may be obtained with a liver protocol MRI or CT if indicated. 4. Multiple small hypoattenuating lesions within the spleen are nonspecific. 5. Small hiatal hernia with mild concentric wall thickening of the distal esophagus compatible with an esophagitis. Dictated by: Bienvenido Mclain M.D. on 04/24/2022 at 21:46 Approved by: Bienvenido Mclain M.D. on 04/24/2022 at 21:53
--- NOTE | 2022-04-24 19:47 | P.HP_ITS ---
History of Present Illness History of Present Illness Chief complaint: Sent from [facility] for hernia Narrative: Mr. Shrestha came via [employer] because he has been having groin pain and went to his PCP. They were concerned about an incarcerated hernia. He has had bilateral hernia repairs in the past as well as recurrences. He he states that mesh was placed on top of old mesh. And he thinks the solution is to remove all the mesh in just fix the hernia without mesh. He says that the hernia has been bothering him for the last couple of months. He has also had increasing problems with constipation. He does take Metamucil and other bowel regimen. He does not think this is working as well as usual. He has lots of questions about urologic issues including urinating and the medicine that he is taking for that. As well as ejaculation of sperm. He is not sure why his ejaculations as not as strong as they used to be and wonders if that might be because of the hernia. Currently he is feeling pretty relaxed because he has been given some medication by the emergency room staff at my request. He has been placed in a Trendelenburg position. Patient History Medical History Bilateral inguinal hernia, without obstruction or gangrene, recurrent Current use of anticoagulant therapy Hemorrhoids with complication History of intestinal obstruction Hypertension Impaired vision Myocardial infarction (10/24/20) Surgical History Anesthesia History of bilateral inguinal hernia repair (~12/31/17) History of hemorrhoidectomy (~12/31/17) Hx of heart artery stent (~10/2020) Family & Social History Social History: household members none Safety & Behavioral: Feels Safe in Current Yes Environment Been Physically Hurt or No Threatened By a Person Tobacco & Substance use: Tobacco type cigarettes Smoking Status Former smoker alcohol intake never Substance Use Type marijuana Meds Home Medications and Allergies Home Medications Medication Instructions Recorded Confirmed Type PSYLLIUM HUSK (WITH SUGAR) 368 gm PO DAILY ##0 03/05/16 04/24/22 History (METAMUCIL POWDER) aspirin 81 mg tablet,delayed 81 mg PO DAILY 11/06/20 04/24/22 History release (Adult Aspirin Regimen) atorvastatin 40 mg tablet 40 mg PO BEDTIME elevated lipids 07/02/21 04/24/22 Rx #90 tabs lisinopril 20 mg tablet 20 mg PO DAILY #90 tabs 07/02/21 04/24/22 Rx diphenhydramine HCl 25 mg capsule See Rx Instructions PO Q4-6H PRN 08/14/21 04/24/22 Rx itching #30 caps ezetimibe 10 mg tablet (Zetia) 10 mg PO DAILY #90 tabs 12/03/21 04/24/22 Rx metformin 500 mg tablet,extended 500 mg PO DAILY #90 tabs 12/03/21 04/24/22 Rx release 24 hr metoprolol tartrate 25 mg tablet 25 mg PO BID #180 tabs 03/18/22 04/24/22 Rx tamsulosin 0.4 mg capsule (Flomax) 0.4 mg PO DAILY #90 caps 03/18/22 04/24/22 Rx Allergies Allergy/AdvReac Type Severity Reaction Status Date / Time No Known Drug Allergies Allergy Verified 04/24/22 09:39 Exam Vital Signs (past 8 hours): - 04/24/22 14:16 04/24/22 17:39 04/24/22 18:56 Temperature 98.1 F Pulse Rate 91 H 89 88 Respiratory Rate 18 19 18 Blood Pressure 130/81 116/76 121/69 Pulse Oximetry 99 96 97 Oxygen Delivery Method Room Air Room Air Room Air Oxygen Delivery Method Room Air Const General: cooperative, healthy appearing and comfortable Orientation: alert, awake and oriented x3 HENMT Mouth: oral mucosae normal Resp Effort & Inspection: normal respiratory effort and able to speak in complete sentences Cardio Pulses: radial pulses present GI Palpation: soft and No tender Other: A right inguinal hernia defect is palpable. However at this time the hernia is reduced. Additionally the patient is complaining of a bulging and pain associated with his testicle. The testicle is tender to the touch on the right side. He also is complaining of tenderness in the inguinal canal, but the hernia has been reduced, there is a palpable defect on the right side. At this time the left inguinal canal was not examined. Patient is still fully clothed wearing jeans and a belt. Objective Labs Result Diagrams: 04/24/22 16:03 04/24/22 16:03 Labs: Laboratory Results - last 24 hr 04/24/22 04/24/22 04/24/22 16:03 16:03 17:33 WBC 7.3 RBC 4.88 Hgb 14.0 Hct 43.4 MCV 89.0 MCH 28.7 MCHC 32.3 RDW 14.0 Plt Count 240 Neut % (Auto) 56.1 Lymph % (Auto) 33.5 [place] % (Auto) 9.0 Eos % (Auto) 1.0 L Baso % (Auto) 0.4 Neut # (Auto) 4100 Lymph # (Auto) 2500 [place] # (Auto) 700 Eos # (Auto) 100 Baso # (Auto) 0 Sodium 142 Potassium 4.6 Chloride 103 Carbon Dioxide 28 BUN 22 H Creatinine 1.19 Estimated GFR > 60 BUN/Creatinine Ratio 18.5 Glucose 105 Calcium 9.3 Total Bilirubin 0.5 AST 41 ALT 45 Alkaline Phosphatase 60 Total Protein 7.7 Albumin 4.4 Globulin 3.3 Albumin/Globulin Ratio 1.3 Lipase 160 Urine RBC 1-5/hpf Urine WBC 0-1/hpf Ur Squamous Epith Cells 0-1 /hpf Urine Bacteria None seen Ur Culture Indicated? Cult not indicated Assessment & Plan Assessment and plan (1) Recurrent right inguinal hernia: Status: Acute Plan Presently the hernia is not incarcerated. However given that it was as tender and per emergency room physician certainly was present and incarcerated prior to giving medication and placing him in Trendelenburg position, is seriously symptomatic. I agree that it should be repaired. It would be ideal not do this under urgent circumstances. At this time I would like to check his testicle using an ultrasound just to make sure that no testicular pathology is contributing to the pain that he is having. Further if there is any concern other etiologies for severe abdominal pain or for the possibility of a loop of bowel that was reduced being compromised, a CT scan will provide further insight. If the CT scan and and ultrasound of the testicle look okay then I think it would probably be all right if he has close follow-up for a hernia repair, alternatively if his pain is persistent, and it is felt highly likely he will return to the emergency room within the next 24 hours with recurrent pain, then he can be admitted for observation and if we are able to, we can attempt to book a hernia repair during this hospitalization. All this was discussed with the ER physician bedside nurse and patient. Time Spent With Patient Critical Care time: I spent a total of [] minutes of critical care time on this patient's care today; this time is exclusive of procedural time.
[2022-04-24 23:29] VITALS: BP 119/68; PULSE 85; RESP 18; O2SAT 99
== END 2022-04-24 23:30 | disposition home or self-care (01) ==
PROVIDERS: Emergency Medicine; Emergency Provider Emergency Medicine; PCP Family Medicine
DX: K40.90 Unilateral inguinal hernia, without obstruction or gangrene, not specified as recurrent (principal); N28.89 Other specified disorders of kidney and ureter
CPT/HCPCS: 36415; 74177; 76870; 80053; 81003; 81015; 83690; 85025; 96374; 96375; 99282; 99284; J1170; J2405; J3360; Q9967

== ENCOUNTER 2022-05-21 07:07 | Day surgery (SDC) | payer MEDICARE, SELFPAY ==
[2022-05-21] VITALS (9 sets, daily range): BP systolic 118–133; BP diastolic 80–88; PULSE 70–101; RESP 10–16; TEMP 36.4–36.7; O2SAT 93–98; BMI 26.9
[2022-05-21] MEDS: LACTATED RINGERS 1,000 ML 42 ML IV ×2 (08:23→13:02)
[2022-05-21 08:32] LABS: COVID19 -Nasal RAPID Negative (Negative)
--- NOTE | 2022-05-21 09:54 | PM.PREOP ---
Pre-operative Note COVID-19 COVID-19 status: Negative Interval Note History & Physical reviewed/Exam performed by Physician: Yes Changes to H&P: No
[2022-05-21] MEDS: CEFAZOLIN 2 GM/100 ML PREMIX 100 ML IV (10:09)
--- NOTE | 2022-05-21 10:42 | SUR.OPER ---
Supine on padded OR bed, head on pillow, arms padded and tucked at sides, legs uncrossed, safety belt at thigh, pink pad under patient. Bed carry in worker under left elbow for support
[2022-05-21] MEDS: BUPIVACAINE 0.5% W/ EPI (PF) 30 ML VIAL INJ (12:03)
--- NOTE | 2022-05-21 13:40 | SUR.PHASEII ---
Patient ambulated to the bathroom, SBA, gait slow but steady. Call light provided in the bathroom. Report given to Negin. Message left with Gee at Dr. Mitchell's office requesting permission to discharge by taxi order and ibuprofen order.
[2022-05-21] MEDS: ACETAMINOPHEN 325 MG TABLET 975 MG PO (13:53)
--- NOTE | 2022-05-21 14:00 | P.OP_ITS ---
Operative Date/Time/Diagnoses Date of procedure: 05/21/22 Pre-op diagnosis: bilateral recurrent inguinal hernias - right side is sliding-type containing some bladder in the indirect space Post-op diagnosis: same Procedure & Clinicians Procedure: bilateral laparoscopic recurrent inguinal hernia repairs Same procedure as scheduled: Yes Indications: Mr. Monzon was seen in the emergency room with severe pain on his right side due to incarceration of his hernia. With positioning and some medication this hernia was able to be reduced. He has remained in less pain with that since that time. He is still suffering with some pain in the area as well as on the left side where he notices bulging as well. I discussed with him the options for repair of recurrent hernias including open bilateral repairs but generally laparoscopic repair is recommended and favored for either recurrent or bilateral hernias... he has both. He understands the risks of the procedure including but not limited to bleeding, infection, injury to other structures, recurrence, need for further surgeries or hospitalizations if there are complications. Surgeon: Shanna Wharton Click Yes if Unassisted: Yes Anesthesia Type: General Operative Notes Procedure in detail: Patient was taken to the operating room and placed in a supine position a time- out was performed. Preoperative antibiotics administered. Bilateral SCDs were in place, general endotracheal anesthesia was induced. Abdomen was prepped and draped in the usual sterile fashion. After infusion of local anesthetic and incision was made below the umbilicus carried down through the subcutaneous tissues to the anterior abdominal wall. This was grasped with 2 Tiny retractors and elevated. The abdomen was then entered sharply under direct visualization using an open Inocente technique. After entry verified by a finger sweep and the Inocente trocar was placed into the abdomen and the abdomen was insufflated. Patient tolerated insufflation well. He was then placed in a Trendelenburg position and tilted to best expose the right-sided hernia which is the most symptomatic for him. you could see a portion of the bladder herniating into the indirect space quite obviously. After placing 2 accessory 5 mm trocars in bilateral lateral positions under direct visualization and using local anesthetic, an incision was made in the peritoneal layer and carried down caudally. Underneath the peritoneal layer within the indirect space there was large chunk of old mesh. There was tissue herniating medial to this. Careful blunt dissection was used to remove the tissue from the hernia defect. Due to scarring around the old mesh some very careful sharp dissection was required. The indirect space seemed relatively unaffected. The usual structures including epigastric gonadal vessels and vas deferens were identified and preserved. A large sized laparoscopic mesh was placed medially at the pubic symphysis, covered both the indirect and the direct spaces. The previously placed mesh was left insitu with the new mesh lying overlying it from a laparoscopic view point, anatomically the new mesh was posterior. The peritoneal layer was then closed over top of the mesh using a running V lock suture. Attention was then turned to the contralateral side. On the left there was less of a hernia defect apparent. It seemed to be an indirect space as well. there were some adhesions of sigmoid colon to the lateral sidewall which I cut in order to give more leeway. The peritoneum was then incised in the usual way and taken down to expose internal ring direct and indirect spaces. Medially dissection was carried to the pubic symphysis and sufficiently laterally to accommodate another large sized mesh. The mesh was placed through the umbilical trocar and set in place. The peritoneum was then closed using a running V lock suture over this mesh. The lateral trocars were then removed under direct visualization and the abdomen was desufflated. The umbilical incision was closed with 2 previously placed 0 Vicryl sutures and an additional 0 Vicryl was placed between them in a [id number] fashion. The skin was closed with running Monocryl sutures and dressed with Steri-Strips. Patient tolerated the procedure well and went in good condition to the postoperative care unit. EBL was minimal.
--- NOTE | 2022-05-21 14:25 | SUR.PHASEII ---
Pt back from the bathroom holding one small steri strip in his hand. Pt left side puncture sitte with 1mm area without steri strips. Edges approximated. New steri strip re-applied with sterile gloves, sterile scissors and technique. No drainage. Pt up to BR again now, steady on feet, slight shuffle per baseline.
[2022-05-21] MEDS: IBUPROFEN 600 MG TABLET PO (14:46)
== END 2022-05-21 14:51 | disposition home or self-care (01) ==
PROVIDERS: PCP Family Medicine; Referring Provider Surgery; Visit Provider Surgery
PROC: 0YQ64ZZ Repair Left Inguinal Region, Percutaneous Endoscopic Approach (ICD-10-PCS; CPT 49651; principal; 2022-05-21 09:15)
DX: K40.21 Bilateral inguinal hernia, without obstruction or gangrene, recurrent (principal); Z20.822 Contact with and (suspected) exposure to COVID-19
CPT/HCPCS: 49651; 87635; C9803; J0690; J1100; J2405; J2704; J3010

== ENCOUNTER → 2022-07-02 10:18 | Outpatient (CLI) | payer MEDICARE, SELFPAY ==
[2022-07-02 19:31] LABS: Alanine Aminotransferase 39 IU/L (<50); Albumin 4.1 g/dL (3.5-5.0); Albumin Globulin Ratio 1.3 (1.0-2.8); Alkaline Phosphatase 72 U/L (38-126); Aspartate Aminotransferase 38 IU/L (17-59); BUN Creatinine Ratio 24.3 (6-22); Bilirubin Total 0.6 mg/dL (0.2-1.3); Blood Urea Nitrogen 26 mg/dL (9-20); Calcium 9.2 mg/dL (8.4-10.2); Carbon Dioxide 27 mmol/L (22-32); Chloride 103 mmol/L (98-107); Estimated Glomerular Filt Rate > 60 mL/min (>60); Globulin 3.2 g/dL (1.7-4.1); Glucose 126 mg/dL (80-110); HEMOLYSIS < 15 (0-50); Potassium 4.8 mmol/L (3.4-5.1); Sodium 141 mmol/L (137-145); Total Protein 7.3 g/dL (6.3-8.2)
[2022-07-02 19:35] LABS: Hemoglobin A1C% w Est Avg Glu 6.5 % (4.0-6.0)
== END ==
PROVIDERS: PCP Family Medicine; Visit Provider Family Medicine
DX: E11.9 Type 2 diabetes mellitus without complications (principal); E78.5 Hyperlipidemia, unspecified; I10 Essential (primary) hypertension; N40.0 Benign prostatic hyperplasia without lower urinary tract symptoms
CPT/HCPCS: 80053; 83036

== ENCOUNTER → 2022-10-28 09:14 | Outpatient (CLI) | payer MEDICARE, SELFPAY ==
[2022-10-28 20:23] LABS: BUN Creatinine Ratio 19.3 (6-22); Blood Urea Nitrogen 22 mg/dL (9-20); Calcium 9.4 mg/dL (8.4-10.2); Carbon Dioxide 28 mmol/L (22-32); Chloride 102 mmol/L (98-107); Cholesterol 112 mg/dL (140-199); Estimated Glomerular Filt Rate > 60 mL/min (>60); Glucose 128 mg/dL (80-110); HDL Cholesterol 30 mg/dL (40-60); HEMOLYSIS 16 (0-50); LDL Cholesterol Calculated 55 mg/dL (<100); Potassium 4.9 mmol/L (3.4-5.1); Sodium 140 mmol/L (137-145); Triglycerides 134 mg/dL (35-150)
[2022-10-28 20:43] LABS: Creatinine Urine Random 196.9 mg/dL
[2022-10-28 20:48] LABS: Microalbumin Urine Random 0.8 mg/dL (0-1.6)
[2022-10-30 01:11] LABS: x Labcorp Estim. Avg Glu (eAG) 143 mg/dL (.); x Labcorp Hemoglobin A1c 6.6 % (4.8-5.6)
== END ==
PROVIDERS: PCP Family Medicine; Visit Provider Family Medicine
DX: E11.9 Type 2 diabetes mellitus without complications (principal); E78.5 Hyperlipidemia, unspecified; I10 Essential (primary) hypertension; I25.10 Atherosclerotic heart disease of native coronary artery without angina pectoris
CPT/HCPCS: 80048; 80061; 82043; 82570; 83036

== ENCOUNTER 2023-01-15 07:10 | Day surgery (SDC) | payer MEDICARE, SELFPAY ==
--- NOTE | 2023-01-15 | PATH_ITS ---
[facility] Accession Number: [id number] No. of containers..02 Tissue . 01 Material submitted: . PART A: rectum - RECTAL POLYP PART B: perianal area - LESLEY-ANAL . 01 Diagnosis: A. Rectum, Polyp: Tubular adenoma. . B. Perianal, Biopsy: Epidermoid inclusion cyst. MRV 01/28/20232023 Local . 01 Electronically signed: . Richa Briones MD, Pathologist NPI- [id number] . 01 Gross description: . A. Received in formalin labeled with the patient's name, , and rectal polyp, and consists of a single mckay soft tissue fragment measuring 0.3 cm in greatest dimension. Submitted entirely in cassette A1. B. Received in formalin, labeled with the patient's name, , and perianal biopsy, and consists of a mckay, irregular fragment of presumed skin measuring 0.9 x 0.8 x 0.3 cm. The margin is inked blue. The specimen is trisected and submitted entirely in cassette B1. ([id number]) /Saira 01/18/2023 1521 Local . 01 Pathologist provided ICD-10: D12.8 . 01 CPT . 980769, 031992 Specimen Comment: A courtesy copy of this report has been sent to [phone] Performed at: 01 [facility] [address] [place] [address], [place], [place] [id number] MD Bienvenido English MD Phone: [phone]
[2023-01-15 10:15] VITALS: BMI 27.1
[2023-01-15 10:31] VITALS: BP 119/80; PULSE 76; RESP 16; TEMP 36.2; O2SAT 97
[2023-01-15] MEDS: LACTATED RINGERS 1,000 ML 100 ML IV (10:31)
--- NOTE | 2023-01-15 10:55 | PM.HP.1 ---
History of Present Illness History of Present Illness Date Patient Seen: 01/15/23 Time Patient Seen: 10:55 Chief complaint: Colonoscopy Narrative: H/o anal surgery for hemorroids, now feels a mass, change in bowel habits. There is an area of bumpy skin devika anal that he is very concerned about as well. [facility] Medical History Bilateral inguinal hernia, without obstruction or gangrene, recurrent Current use of anticoagulant therapy History of intestinal obstruction Hypertension Impaired vision Myocardial infarction (10/24/20) Surgical History Anesthesia History of bilateral inguinal hernia repair (~12/31/17) History of hemorrhoidectomy (~12/31/17) History of orthopedic surgery (12/14/20) Hx of heart artery stent (~10/2020) Social History household members: none Smoking Status: Former smoker alcohol intake: never substance use type: marijuana Meds Home Medications and Allergies Home Medications Medication Instructions Recorded Confirmed Type aspirin 81 mg tablet,delayed 81 mg PO DAILY 11/06/20 01/15/23 History release (Adult Aspirin Regimen) metoprolol tartrate 25 mg tablet 25 mg PO BID #180 tabs 03/18/22 01/15/23 Rx tamsulosin 0.4 mg capsule (Flomax) 0.4 mg PO DAILY #90 caps 03/18/22 01/15/23 Rx docusate sodium 100 mg capsule 100 mg PO BID #20 caps 05/14/22 01/15/23 Rx (Colace) ibuprofen 600 mg tablet 600 mg PO Q6H #30 tabs 05/28/22 01/15/23 Rx finasteride 5 mg tablet 5 mg PO DAILY #90 tabs 07/18/22 01/15/23 Rx metformin 750 mg tablet,extended 750 mg PO DAILY #90 tabs 07/18/22 01/15/23 Rx release 24 hr rosuvastatin 40 mg tablet (Crestor) 40 mg PO DAILY #90 tabs 07/18/22 01/15/23 Rx ezetimibe 10 mg tablet (Zetia) 10 mg PO DAILY #90 tabs 09/20/22 01/15/23 Rx lisinopril 20 mg tablet 20 mg PO DAILY #90 tabs 12/12/22 01/15/23 Rx Allergies Allergy/AdvReac Type Severity Reaction Status Date / Time No Known Drug Allergies Allergy Verified 01/15/23 10:15 Review of Systems Review of Systems ROS: Yes All systems reviewed with the patient and are negative except as otherwise documented Exam Vital Signs (past 8 hours): - 01/15/23 10:31 Temperature 97.1 F L Pulse Rate 76 Respiratory Rate 16 Blood Pressure 119/80 Pulse Oximetry 97 Oxygen Delivery Method Room Air Oxygen Delivery Method Room Air Const General: healthy appearing, comfortable and anxious Eyes Sclera: sclerae normal Neck Neck: trachea midline Resp Effort & Inspection: normal respiratory effort and able to speak in complete sentences Cardio Rate: regular rate Rhythm: regular rhythm GI Palpation: soft Skin General: atrophy Neuro General: patient alert, patient awake and patient oriented x3 Psych Mental Status: mental status grossly normal Judgment: judgment good Assessment & Plan Assessment & Plan narrative: Change in bowel habits, abnormal tags devika anal Plan: Colonoscopy with anal biopsy Time Spent With Patient Time with patient: less than 30 minutes
[2023-01-15] MEDS: LIDOCAINE 1% 20 ML, EPINEPHrine 0.2 MG INJ (11:18)
--- NOTE | 2023-01-15 11:42 | PM.OP.COLON ---
Operative Date/Time/Diagnoses Date of procedure: 01/15/23 Time of procedure: 11:42 Pre-op diagnosis: Colon cancer screening, change in bowel habits, perianal mass Post-op diagnosis: same Procedure & Clinicians Study performed: Colonoscopy with biopsy of perianal mass Same procedure as scheduled: Yes Indications: Colon cancer screening, change in bowel habits, perianal mass Surgeon: Hoda Waite Procedure Notes Procedure in detail: Preop diagnosis: Colon cancer screening, change in bowel habits, perianal mass Postop diagnosis: Same Operative procedure: Colonoscopy with polypectomy using cold forceps, excisional biopsy of perianal mass Surgeon: Madhavi Waite MD Anesthetic: Mac with local Findings: 1 small polyp in the rectal area 3 mm in size taken with cold forceps. Retroflex showed some scar tissue of the anus, no abnormalities, grade 2 hemorrhoids. Externally on the skin in the perianal region were to small sebaceous cyst. Procedure: Patient placed in a lateral position. Rectal exam performed showing normal tone no masses aside from the visualized perianal sebaceous cyst. Scope inserted into the rectum and advanced to ileocecal valve with minimal difficulty. Insufflation extraction scope and the above findings. Retroflex included in the procedure to show old scarring from prior hemorrhoidectomy, grade 2 hemorrhoids. I then extracted the scope and turned my attention to an excisional biopsy of what I believe to be perianal sebaceous cyst. Local anesthetic was injected just beneath the sebaceous cyst and a tenotomy scissor was used to excise the skin as I lifted it from the area with good clearance. Hemostasis achieved with direct pressure, 1 cm excision closed with a running 2-0 Vicryl. Dry dressings were placed patient was awakened, taken to recovery room in stable condition. Needle, instrument, sponge counts were correct. Impression: Single small polyp in the rectum gross appearance of an adenoma. We will likely be on a 5 year recall plan. Perianal skin lesion sent for permanent pathology Plan: Follow up with Dr. Wharton thus 2 weeks for path results Findings: polyp(s) (3 mm sessile rectal polyp) Specimen(s): other (Rectal polyp as well as perianal cyst) Complications: none Post-procedure Recommendations: Colonoscopy in 5 years Follow up: weeks Disposition: PACU
[2023-01-15 11:49] VITALS: BP 83/50; PULSE 83; RESP 16; TEMP 36.1; O2SAT 95
[2023-01-15 11:52] VITALS: BP 80/49; PULSE 89; RESP 16; O2SAT 95
[2023-01-15 11:56] VITALS: BP 91/66; PULSE 88; RESP 16; O2SAT 98
[2023-01-15 12:01] VITALS: BP 105/74; PULSE 79; RESP 16; TEMP 36.2; O2SAT 96
[2023-01-15 12:04] VITALS: BP 117/70; PULSE 84; RESP 16; TEMP 36.2; O2SAT 96
== END 2023-01-15 12:19 | disposition home or self-care (01) ==
PROVIDERS: Surgery; PCP Family Medicine; Referring Provider Surgery; Visit Provider Surgery
PROC: 0DJD8ZZ Inspection of Lower Intestinal Tract, Via Natural or Artificial Opening Endoscopic (ICD-10-PCS; CPT 45378; principal; 2023-01-15 10:45)
DX: R19.4 Change in bowel habit (principal); K64.1 Second degree hemorrhoids; L72.0 Epidermal cyst; D12.8 Benign neoplasm of rectum
CPT/HCPCS: 45380; 11421; J0171; J2704

== ENCOUNTER → 2023-04-30 11:27 | Outpatient (CLI) | payer MEDICARE, SELFPAY ==
[2023-04-30 19:38] LABS: Add Manual Diff / Slide Review NO; Basophils Absolute Auto 0 /uL (0-100); Basophils Percent Auto 0.3 % (0-2); Eosinophils Absolute Auto 100 /uL (0-450); Eosinophils Percent Auto 1.2 % (2-4); Hematocrit 43.2 % (41-53); Hemoglobin 14.4 g/dL (13.5-17.5); Lymphocytes Absolute Auto 2800 /uL (1100-4500); Lymphocytes Percent Auto 38.9 % (25-40); Mean Corpuscular HGB Conc 33.3 % (30-36); Mean Corpuscular Hemoglobin 29.6 PG (26-34); Mean Corpuscular Volume 88.7 fL (80-100); Monocytes Absolute Auto 600 /uL (0-900); Monocytes Percent Auto 7.7 % (3-14); Neutrophils Absolute Auto 3800 /uL (1500-7000); Neutrophils Percent Auto 51.9 % (50-75); Platelet Count 236 X10^3/uL (150-400); Red Blood Cell Count 4.86 X10^6/uL (4.5-5.9); Red Cell Distribution Width 13.6 % (11.6-14.8); White Blood Cell Count 7.2 X10^3/uL (4.5-11.0)
[2023-04-30 19:42] LABS: Hemoglobin A1C% w Est Avg Glu 6.8 % (4.0-6.0)
[2023-04-30 19:44] LABS: BUN Creatinine Ratio 18.2 (6-22); Blood Urea Nitrogen 20 mg/dL (9-20); Cholesterol 102 mg/dL (140-199); Estimated Glomerular Filt Rate > 60 mL/min (>60); HDL Cholesterol 29 mg/dL (40-60); LDL Cholesterol Calculated 48 mg/dL (<100); Triglycerides 125 mg/dL (35-150)
[2023-04-30 19:55] LABS: Creatinine Urine Random 265.2 mg/dL
[2023-04-30 20:00] LABS: Microalbumi Creatinin Ratio Ur 4.9 ug/mg CR (<30); Microalbumin Urine Random 1.3 mg/dL (0-1.6)
== END ==
PROVIDERS: PCP Family Medicine; Visit Provider Family Medicine
DX: I10 Essential (primary) hypertension (principal); E78.2 Mixed hyperlipidemia; E78.5 Hyperlipidemia, unspecified; I25.2 Old myocardial infarction; D64.9 Anemia, unspecified; E11.9 Type 2 diabetes mellitus without complications
CPT/HCPCS: 80061; 82043; 82565; 82570; 83036; 84520; 85025

== ENCOUNTER → 2023-11-04 13:52 | Outpatient (CLI) | payer MEDICARE, SELFPAY ==
[2023-11-04 19:12] LABS: Hematocrit 40.7 % (41-53); Hemoglobin 13.7 g/dL (13.5-17.5); Mean Corpuscular HGB Conc 33.5 % (30-36); Mean Corpuscular Hemoglobin 29.8 PG (26-34); Mean Corpuscular Volume 88.8 fL (80-100); Platelet Count 251 X10^3/uL (150-400); Red Blood Cell Count 4.59 X10^6/uL (4.5-5.9); Red Cell Distribution Width 13.8 % (11.6-14.8)
[2023-11-04 19:26] LABS: BUN Creatinine Ratio 17.6 (6-22); Blood Urea Nitrogen 23 mg/dL (9-20); Calcium 9.4 mg/dL (8.4-10.2); Carbon Dioxide 22 mmol/L (22-32); Chloride 111 mmol/L (98-107); Estimated Glomerular Filt Rate 58 mL/min (>60); Glucose 105 mg/dL (80-110); HEMOLYSIS < 15 (0-50); Potassium 4.9 mmol/L (3.4-5.1); Sodium 141 mmol/L (137-145)
[2023-11-04 19:35] LABS: Hemoglobin A1C% w Est Avg Glu 6.8 % (4.0-6.0)
[2023-11-04 19:51] LABS: Creatinine Urine Random 693.85 mg/dL
[2023-11-04 20:00] LABS: Neutrophils Absolute Manual 3220 /uL (3000-5900); Total Cells Counted 100
[2023-11-04 20:02] LABS: RBC Morphology Normal Morphology
== END ==
PROVIDERS: PCP Family Medicine; Visit Provider Family Medicine
DX: E11.9 Type 2 diabetes mellitus without complications (principal); D64.9 Anemia, unspecified; E78.5 Hyperlipidemia, unspecified; I10 Essential (primary) hypertension
CPT/HCPCS: 80048; 82043; 82570; 83036; 85025

== ENCOUNTER → 2024-06-07 10:55 | Outpatient (CLI) | payer OTHER, SELFPAY ==
[2024-06-07 18:42] LABS: Add Manual Diff / Slide Review NO; Basophils Absolute Auto 0 /uL (0-100); Basophils Percent Auto 0.3 % (0-2); Eosinophils Absolute Auto 100 /uL (0-450); Eosinophils Percent Auto 1.1 % (2-4); Hematocrit 45.3 % (41-53); Hemoglobin 14.9 g/dL (13.5-17.5); Lymphocytes Absolute Auto 2800 /uL (1100-4500); Lymphocytes Percent Auto 33.8 % (25-40); Mean Corpuscular HGB Conc 32.9 % (30-36); Mean Corpuscular Hemoglobin 29.4 PG (26-34); Mean Corpuscular Volume 89.4 fL (80-100); Monocytes Absolute Auto 600 /uL (0-900); Monocytes Percent Auto 7.5 % (3-14); Neutrophils Absolute Auto 4700 /uL (1500-7000); Neutrophils Percent Auto 57.3 % (50-75); Platelet Count 229 X10^3/uL (150-400); Red Blood Cell Count 5.06 X10^6/uL (4.5-5.9); Red Cell Distribution Width 13.8 % (11.6-14.8); White Blood Cell Count 8.2 X10^3/uL (4.5-11.0)
[2024-06-07 18:47] LABS: Blood Urea Nitrogen 22 mg/dL (9-20); Calcium 9.3 mg/dL (8.4-10.2); Carbon Dioxide 26 mmol/L (22-32); Chloride 105 mmol/L (98-107); Cholesterol 102 mg/dL (140-199); Estimated Glomerular Filt Rate > 60 mL/min (>60); Glucose 132 mg/dL (80-110); HDL Cholesterol 31 mg/dL (40-60); HEMOLYSIS 21 (0-50); LDL Cholesterol Calculated 50 mg/dL (<100); Potassium 4.5 mmol/L (3.4-5.1); Sodium 139 mmol/L (137-145); Triglycerides 105 mg/dL (35-150)
[2024-06-07 19:09] LABS: Creatinine Urine Random 294.73 mg/dL
[2024-06-07 19:18] LABS: Prostate Specific Antigen 1.78 ng/mL (0.10-4.00)
== END ==
PROVIDERS: PCP Family Medicine; Visit Provider Family Medicine
DX: I10 Essential (primary) hypertension (principal); E78.2 Mixed hyperlipidemia; I25.10 Atherosclerotic heart disease of native coronary artery without angina pectoris; D64.9 Anemia, unspecified; I25.2 Old myocardial infarction; E11.9 Type 2 diabetes mellitus without complications
CPT/HCPCS: 80048; 80061; 82043; 82570; 84153; 85025

== ENCOUNTER → 2024-12-07 10:39 | Outpatient (CLI) | payer OTHER, SELFPAY ==
[2024-12-07 19:25] LABS: Add Manual Diff / Slide Review NO; Hematocrit 43.3 % (41-53); Hemoglobin 14.5 g/dL (13.5-17.5); Lymphocytes Absolute Auto 2600 /uL (1100-4500); Mean Corpuscular HGB Conc 33.6 % (30-36); Mean Corpuscular Hemoglobin 30.2 PG (26-34); Mean Corpuscular Volume 89.9 fL (80-100); Platelet Count 230 X10^3/uL (150-400)
[2024-12-07 19:42] LABS: Blood Urea Nitrogen 23 mg/dL (9-20); Calcium 9.4 mg/dL (8.4-10.2); Carbon Dioxide 26 mmol/L (22-32); Chloride 104 mmol/L (98-107); Cholesterol 111 mg/dL (140-199); Estimated Glomerular Filt Rate > 60 mL/min (>60); Glucose 124 mg/dL (70-99); HDL Cholesterol 34 mg/dL (40-60); HEMOLYSIS 31 (0-50); Potassium 5.1 mmol/L (3.4-5.1); Sodium 138 mmol/L (137-145); Triglycerides 84 mg/dL (35-150)
[2024-12-07 20:07] LABS: Hemoglobin A1C% w Est Avg Glu 6.6 % (4.0-6.0)
== END ==
PROVIDERS: PCP Family Medicine; Visit Provider Family Medicine
DX: D64.9 Anemia, unspecified (principal); I25.10 Atherosclerotic heart disease of native coronary artery without angina pectoris; E11.9 Type 2 diabetes mellitus without complications; E78.2 Mixed hyperlipidemia; I10 Essential (primary) hypertension
CPT/HCPCS: 80048; 80061; 83036; 85025